=== PATIENT | male | born 1945 | race Caucasian/White ===

== ENCOUNTER 2017-05-18 01:08 | Inpatient (IN) | payer MEDICARE, OTHER ==
[2017-05-18] MEDS ORDERED: NS 0.9% 1000 ML* 1,000 ML IV ONE ×2 (02:23→03:25)
--- OUTSIDE RECORDS SUMMARY | 2017-05-18 02:59 | XMS REPORT ---
:1945 External Reference #:[id number] Author [facility] Address [address] [address] Phone [phone] Care Team Providers Name Role Phone Marlin Mattson MD Primary Care Physician Unavailable Payers Type Date Identification Numbers Payment Provider Subscriber Medicare Primary Policy Number: [id number] Medicare Otto Karimi PayID: [id number] [address] [place] [address] [facility] Part B Policy Number: [id number] For Life Otto Karimi PayID: [id number] [address] [place] [address] Problems Date Description Provider Status Onset: 05/08/2015 Chronic atrial fibrillation Jimmy Lovell M.D., [facility], Active FASNC Onset: 04/26/2015 Parkinson's disease Balwinder Villa MD Active Onset: 04/26/2015 Cerebral hemorrhage Balwinder Villa MD Active Onset: 04/18/2015 Atrial fibrillation Jimmy Lovell M.D., [facility], Active FASNC Family History Date Family Member(s) Problem(s) Comments Father due to [place] () Mother due to Lung Cancer () Social History Type Date Description Comments Marital Status Lives With Occupation Retired Cigarette Use Never Smoked Cigarettes ETOH Use Denies alcohol use Smoking Patient has never smoked Recreational Drug Use Denies Drug Use Daily Caffeine Consumes on average 3 cups of regular coffee per day Daily Caffeine Consumes on average 3 cups of hot tea per day Exercise Type/Frequency Exercises regularly Allergies, Adverse Reactions, Alerts Date Description Reaction Status Severity Comments 06/01/2014 NKDA active Medications Medication Date Status Form Strength Qnty SIG Indications Ordering Provider Pramipexole 00/00/ Active Tablets 0.75mg 1 tab po Unknown Dihydrochloride 0000 daily Tamsulosin HCL 00/00/ Active Capsules 0.4mg 1 by Unknown 0000 mouth every day Bisoprolol 00/00/ Active Tablet 2.5mg 1/2 tab Unknown Fumarate 0000 po daily Xarelto / Active Tablets 20mg 90tabs 1 by Jimmy 0000 mouth Vallecillo every day Hina Lovell, FACSandor, FASNC Azilect / Active Tablets 1mg 1 by Unknown 0000 mouth every day Stalevo 150 / Active Tablets 37.5-150-2 1 tab Unknown 0000 00mg three times a day Ramipril / Active Capsules 2.5mg 1 by Unknown 0000 mouth every day Sinemet // Hx Tablets 25-100mg 2 tabs po Unknown 0000 - tid 2015 Ramipril 00/00/ Hx Capsules 2.5mg 1 by Unknown 0000 - mouth bid 2015 Furosemide /00/ Hx Tablets 20mg 2 by Unknown 0000 - mouth 04/25/ 2015 morning Cotrim 00/ Hx Tabs two tabs Unknown 0000 - daily 2015 Medications Administered in Office Medication Date Status Form Strength Qnty SIG Indications Ordering Provider Technetium TC Administered Injection Jimmy Vallecillo 99M [id number] Tracy Lovell M.D., [facility]ED WITH [facility], Per Unit Dose FASPHILIPP Up To 40 Millicuries Vital Signs Date Vital Result Comment 05/04/2017 Height 74 inches 6'2" Weight 195.00 lb No shoes Heart Rate 58 /min BP Systolic Sitting 102 mmHg Rue reg cuff BP Diastolic Sitting 72 mmHg Rue reg cuff BP Systolic Standing 100 mmHg Rue reg cuff BP Diastolic Standing 72 mmHg Rue reg cuff Respiratory Rate 17 /min BMI (Body Mass Index) 25.0 kg/m2 Ejection Fraction 55-60% 04/20/2015-echo 05/08/2015 Height 74 inches 6'2" Weight 195.00 lb without shoes Heart Rate 68 /min BP Systolic 106 mmHg Ra lrg cuff BP Diastolic 74 mmHg Ra lrg cuff BP Systolic Standing 98 mmHg Ra lrg cuff BP Diastolic Standing 64 mmHg Ra lrg cuff Respiratory Rate 16 /min BMI (Body Mass Index) 25.0 kg/m2 Ejection Fraction 55-60% 04/20/15 04/26/2015 Height 74 inches 6'2" Weight 182.00 lb Heart Rate 64 /min BP Systolic Sitting 102 mmHg BP Diastolic Sitting 70 mmHg Respiratory Rate 14 /min BMI (Body Mass Index) 23.4 kg/m2 04/18/2015 Height 74 inches 6'2" Weight 192.00 lb w/ shoes Heart Rate 70 /min irreg BP Systolic 122 mmHg Lue, reg cuff BP Diastolic 80 mmHg Lue, reg cuff BP Systolic Sitting 114 mmHg Rue, reg cuff BP Diastolic Sitting 70 mmHg Rue, reg cuff BP Systolic Standing 110 mmHg Rue BP Diastolic Standing 66 mmHg Rue Respiratory Rate 18 /min BMI (Body Mass Index) 24.6 kg/m2 06/02/2014 Height 74 inches 6'2" Weight 178.00 lb Heart Rate 60 /min BP Systolic Sitting 102 mmHg BP Diastolic Sitting 60 mmHg Respiratory Rate 12 /min BMI (Body Mass Index) 22.9 kg/m2 Results Description No Information Procedures Date CPT Code Description Status 05/04/2017 59609 EKG Tracing & Interpretation Completed 04/30/2015 57351 Stress Test Completed 04/30/2015 17308 Myocardial Perfusion Imaging Tomographic (Spect) Completed Multiple Studies 04/20/2015 02712 ECHO Transthoracic, Real-Time 2D With Doppler And Color Completed Flow 04/18/2015 05136 EKG Tracing & Interpretation Completed Encounters Type Date Location Provider CPT E/M Dx Office Visit 05/04/2017 [facility] Jimmy Lovell 62503 I48.2 11:15a Guillaume Santamaria, YRN, [facility] [address]337 I48.2 2:00p Guillaume Santamaria, [place], [facility] Office Visit 04/26/2015 [facility] [place] [address] I61.9 10:30a [facility] I48.91 G20 Z86.73 Office Visit 04/18/2015 9:45a [facility] Jimmy Vallecillo [address]31[address] I48.91 Hina Lovell, [facility], [facility] Office Visit 06/02/2014 9:45a [facility] Balwinder Villa, 600[address] 332.0 Plan of Care 05/04/2017 - Jimmy Lovell M.D., [facility], [id number] Chronic atrial fibrillationNew Orders:EchocardiogramComments:As discussed, I feel your heart is doing well.Follow up:one year post TOE.
[2017-05-18 03:04] LABS: EGFR Non-African American 82.6 (>60)
[2017-05-18 03:14] LABS: Hematocrit 51 % (42-52); Hemoglobin 16.4 g/dl (14.0-18.0); Mean Corpuscular HGB Conc 32 g/dl (31-36); Mean Corpuscular Hemoglobin 30 pg (27-31); Mean Corpuscular Volume 94 fL (80-94); Red Blood Count 5.45 10^6/ul (4.0-5.4); Red Cell Distribution Width 14 % (10.5-15); White Blood Count 29.1 10^3/ul (3.5-10.8)
[2017-05-18 03:14] LABS: Urine Appearance Clear; Urine Blood Negative (Negative); Urine Color Amber; Urine Ketones Trace (Negative); Urine Protein Negative (Negative); Urine Specific Gravity 1.016 (1.010-1.030); Urine Urobilinogen Negative (Negative)
[2017-05-18 03:15] LABS: ABS Basophils 0.1 10^3/ul (0-0.2); ABS Eosinophils 0 10^3/ul (0-0.6); ABS Lymphocytes 0.5 10^3/ul (1.0-4.8); ABS Neutrophils 26.6 10^3/ul (1.5-7.7); ABS Nucleated RBC 0.2 10^3/ul; Eosinophil % 0 % (0-6); Lymphocyte % 1.8 % (25-47); Nucleated Red Blood Cells % 0.6; Platelet Count 350 10^3/ul (150-450)
[2017-05-18] MEDS ORDERED: Clindamycin 600 MG IVPREMIX(* 600 MG/50 ML SDV IV ONE (03:29)
[2017-05-18] MEDS ORDERED: Piperacillin/Tazobac ADVAN(*) 3.375 GM in NS 0.9% 100 ML* 100 ML IVPB ONE (04:12)
[2017-05-18] MEDS ORDERED: Ondansetron INJ* 2 MG/ML VIAL IV PRN (05:04)
--- NOTE | 2017-05-18 05:32 | ED ---
Gee Gupta Julia, scribed for Salvador Palencia MD on 05/18/17 at 0342 . 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 He reports that he was unable to get up. His helped him out and is concerned for fever. Patient denies feeling feverish or having any pain. Pt has Parkinsons disease, and states that he is sometimes unable to get up due to the disease. He is unsure of what stage he is at. He denies recent changes in medication. - History Of Current Complaint Chief Complaint: EDWeakness Time Seen by Provider: 05/18/17 02:11 Hx Obtained From: Patient Onset/Duration: Sudden Onset - on chronic disease Location: Negative Associated Signs And Symptoms: Positive: Weakness Related History: Recent Illness - Parkinsons - Allergies/Home Medications Allergies/Adverse Reactions: Allergies Allergy/AdvReac Type Severity Reaction Status Date / Time No Known Allergies Allergy Verified 04/30/15 13:47 PMH/Surg Hx/FS Hx/Imm Hx Endocrine/Hematology History: Denies: Hx Diabetes Cardiovascular History: Reports: Hx Hypertension Denies: Hx Pacemaker/ICD Respiratory History: Denies: Hx Asthma History: Denies: Hx Dialysis, Hx Renal Disease Sensory History: Denies: Hx Hearing Aid Neurological History: Reports: Other Neuro Impairments/Disorders - Parkinson's Psychiatric History: Denies: Hx Panic Disorder - Surgical History Surgery Procedure, Year, and Place: SPLEEN REMOVED Infectious Disease History: No Infectious Disease History: Denies: Traveled Outside the [place] in Last 30 Days - Social History Alcohol Use: None Substance Use Type: Reports: None Smoking Status (MU): Never Smoked Tobacco Review of Systems Negative: Fever - despite temperature reading Negative: Myalgia Positive: Weakness All Other Systems Reviewed And Are Negative: Yes Physical Exam - Summary Physical Exam Summary: Appearance: Well appearing, no pain distress Skin: warm, dry, reflects adequate perfusion Head/face: normal, flat faces Eyes: EOMI, JENELLE ENT: tacky mucous membranes Neck: supple, non-tender Respiratory: CTA, breath sounds present Cardiovascular: Regular rhythm tachycardic, pulses symmetrical Abdomen: non-tender, soft Bowel: present Musculoskeletal: normal strength/ROM intact, 1+ pitting edema on the L leg, R hand is erythematous and warm, Neuro: sensory motor intact, A&Ox3 L hand tremulous Triage Information Reviewed: Yes Vital Signs On Initial Exam: Initial Vitals Temp Pulse Resp BP Pulse Ox 102.3 F 99 18 116/89 94 05/18/17 01:10 05/18/17 01:10 05/18/17 01:10 05/18/17 01:10 05/18/17 01:10 Vital Signs Reviewed: Yes Diagnostics - Vital Signs Vital Signs Temp Pulse Resp BP Pulse Ox 05/18/17 01:34 101.6 F 05/18/17 01:10 102.3 F 99 18 116/89 94 - Laboratory Lab Results: Lab Results 05/18/17 05/18/17 05/18/17 Range/Units 02:35 02:35 02:50 WBC 29.1 H (3.5-10.8) 10^3/ul RBC 5.45 H (4.0-5.4) 10^6/ul Hgb 16.4 (14.0-18.0) g/dl Hct 51 (42-52) % MCV 94 (80-94) fL MCH 30 (27-31) pg MCHC 32 (31-36) g/dl RDW 14 (10.5-15) % Plt Count 350 (150-450) 10^3/ul MPV Not Reportable Neut % (Auto) 91.3 H (38-83) % Lymph % (Auto) 1.8 L (25-47) % [place] % (Auto) 6.7 (1-9) % Eos % (Auto) 0 (0-6) % Baso % (Auto) 0.2 (0-2) % Absolute Neuts (auto) 26.6 H (1.5-7.7) 10^3/ul Absolute Lymphs (auto) 0.5 L (1.0-4.8) 10^3/ul Absolute Monos (auto) 2.0 H (0-0.8) 10^3/ul Absolute Eos (auto) 0 (0-0.6) 10^3/ul Absolute Basos (auto) 0.1 (0-0.2) 10^3/ul Absolute Nucleated RBC 0.2 10^3/ul Nucleated RBC % 0.6 Sodium 133 (133-145) mmol/L Potassium Pending Chloride 103 (101-111) mmol/L Carbon Dioxide 23 (22-32) mmol/L Anion Gap Pending BUN 19 (6-24) mg/dL Creatinine 0.91 (0.67-1.17) mg/dL Est GFR ( Amer) 106.2 (>60) Est GFR (Non-Af Amer) 82.6 (>60) BUN/Creatinine Ratio 20.9 H (8-20) Glucose 114 H (70-100) mg/dL Calcium 9.4 (8.6-10.3) mg/dL Total Bilirubin 0.70 (0.2-1.0) mg/dL AST Pending ALT 11 (7-52) U/L Alkaline Phosphatase 52 (34-104) U/L Total Protein 6.9 (6.4-8.9) g/dL Albumin 3.7 (3.2-5.2) g/dL Globulin 3.2 (2-4) g/dL Albumin/Globulin Ratio 1.2 (1-3) Urine Color Rosario Urine Appearance Clear Urine pH 6.0 (5-9) Ur Specific Issue 1.016 (1.010-1.030) Urine Protein Negative (Negative) Urine Ketones Trace H (Negative) Urine Blood Negative (Negative) Urine Nitrate Negative (Negative) Urine Bilirubin Negative (Negative) Urine Urobilinogen Negative (Negative) Ur Leukocyte Esterase Negative (Negative) Urine Glucose Negative (Negative) Influenza A (Rapid) (Negative) Influenza B (Rapid) (Negative) 05/18/17 Range/Units 03:01 WBC (3.5-10.8) 10^3/ul RBC (4.0-5.4) 10^6/ul Hgb (14.0-18.0) g/dl Hct (42-52) % MCV (80-94) fL MCH (27-31) pg MCHC (31-36) g/dl RDW (10.5-15) % Plt Count (150-450) 10^3/ul MPV Neut % (Auto) (38-83) % Lymph % (Auto) (25-47) % [place] % (Auto) (1-9) % Eos % (Auto) (0-6) % Baso % (Auto) (0-2) % Absolute Neuts (auto) (1.5-7.7) 10^3/ul Absolute Lymphs (auto) (1.0-4.8) 10^3/ul Absolute Monos (auto) (0-0.8) 10^3/ul Absolute Eos (auto) (0-0.6) 10^3/ul Absolute Basos (auto) (0-0.2) 10^3/ul Absolute Nucleated RBC 10^3/ul Nucleated RBC % Sodium (133-145) mmol/L Potassium Chloride (101-111) mmol/L Carbon Dioxide (22-32) mmol/L Anion Gap BUN (6-24) mg/dL Creatinine (0.67-1.17) mg/dL Est GFR ( Amer) (>60) Est GFR (Non-Af Amer) (>60) BUN/Creatinine Ratio (8-20) Glucose (70-100) mg/dL Calcium (8.6-10.3) mg/dL Total Bilirubin (0.2-1.0) mg/dL AST ALT (7-52) U/L Alkaline Phosphatase (34-104) U/L Total Protein (6.4-8.9) g/dL Albumin (3.2-5.2) g/dL Globulin (2-4) g/dL Albumin/Globulin Ratio (1-3) Urine Color Urine Appearance Urine pH (5-9) Ur Specific Issue (1.010-1.030) Urine Protein (Negative) Urine Ketones (Negative) Urine Blood (Negative) Urine Nitrate (Negative) Urine Bilirubin (Negative) Urine Urobilinogen (Negative) Ur Leukocyte Esterase (Negative) Urine Glucose (Negative) Influenza A (Rapid) Negative (Negative) Influenza B (Rapid) Negative (Negative) Result Diagrams: 05/18/17 02:35 05/18/17 02:35 Lab Statement: Any lab studies that have been ordered have been reviewed, and results considered in the medical decision making process. - Radiology R hand XR Radiology Interpretation Completed By: ED Physician - Negative for foriegn body no fracture. CXR Radiology Interpretation Completed By: ED Physician - No acute pulmonary disease. Re-Evaluation - Re-Evaluation First Eval Change: Improved - with iv fluids Complex Multi-Symp Course/Dx Course Of Treatment: pt presented for weakness but found to have bright red R hand and fever. No pain in hand. No other def septic source seen. Epi toes mildly red. Started empiric clinda, added zosyn later. Lactate not elevated. Admit for futher eval of sepsis syndrome. - Diagnoses Differential Diagnoses/HQI/PQRI: Metabolic Abnormality, Sepsis, Urinary Tract Infection Provider Diagnoses: Sepsis syndrome, Generalized weakness, Parkinsonian syndrome - Physician Notifications Discussed Care Of Patient With: Kalyn Chilel Time Discussed With Above Provider: 04:11 Instructed by Provider To: Admit As Inpatient Discharge - Discharge Plan Condition: Fair Disposition: ADMITTED TO [facility] The documentation as recorded by the Gee chapa Julia accurately reflects the service I personally performed and the decisions made by , Salvador Palencia MD.
[2017-05-18] MEDS: NS 0.9% 1000 ML* 1,000 ML IV SCH ×2 (06:03→16:26)
--- NOTE | 2017-05-18 07:49 | RAD ---
INDICATION: Shortness of breath. COMPARISON: Similar chest x-ray dated March 31, 2015 TECHNIQUE: PA and lateral views of the chest were obtained. FINDINGS: The heart and mediastinum are normal in size and contour. Again seen is a stigmata of chronic obstructive pulmonary disease. Otherwise the lungs are grossly clear. There is no evidence of large pleural effusion. Visualized bones are normal for the patient's age. There is no radiographic evidence of free air beneath the diaphragm IMPRESSION: AGAIN SEEN IS THE STIGMATA OF CHRONIC OBSTRUCTIVE PULMONARY DISEASE WITHOUT RADIOGRAPHICALLY APPARENT ACUTE CARDIOTHORACIC ABNORMALITY.
--- NOTE | 2017-05-18 07:49 | RAD ---
INDICATION: Right hand erythema COMPARISON: None. TECHNIQUE: 3 views of the right hand were obtained. FINDINGS: The adequately corticated bones are in normal alignment. No significant focal osseous abnormality or fracture is seen. Joint spaces appear maintained. IMPRESSION: Normal right hand radiograph. If the patient's symptoms persist, follow-up imaging is recommended.
[2017-05-18] MEDS: ENTACAPONE PO SCH ×3 (09:37→20:15)
[2017-05-18] MEDS: LEVODOPA PO SCH ×3 (09:37→20:15)
[2017-05-18] MEDS: Bisoprolol TAB* 5 MG PO SCH (09:37)
[2017-05-18] MEDS: CARBIDOPA PO SCH ×3 (09:37→20:15)
[2017-05-18] MEDS: RASAGILINE 1 MG PO SCH (09:38)
[2017-05-18] MEDS: Pramipexole TAB* 0.5 MG PO SCH (09:38)
[2017-05-18] MEDS: Tamsulosin CAP* 0.4 MG PO SCH (09:38)
[2017-05-18] MEDS: Ramipril CAP* 2.5 MG PO SCH (09:38)
--- NOTE | 2017-05-18 10:18 | PN ---
Hospitalist Progress Note Date of Service: 05/18/17 Seen and examined by me this morning, I am assuming his care today. No complaints, just worked with PT and felt well. No dysuria, cough/sputum, sore throat, diarrhea. On exam, he is afebrile, well appearing. Some erythema on left 2nd and 3rd digits with a chronic appearing ulcer on tip of 3rd digit, also with an ulcer on right 2nd digit 71 yo M with history of Parkinson's presents after a fall and is found to have SIRS criteria with a suspected source of his toes. Fall likely from infection exacerbating his parkinson's symptoms. PT evaluating. Sepsis in setting of asplenia, I agree most likely source is toe ulcers. Continue clindamycin and check blood cultures. Consider MRI to rule out osteomyelits, pending ID consult Wound care consult
[2017-05-18] MEDS: Clindamycin 600 MG IVPREMIX(* 600 MG/50 ML SDV IV SCH ×2 (12:02→20:15)
--- NOTE | 2017-05-18 14:51 | HP ---
CC: Dr. Marlin Mattson; Dr. Villa; Dr. Lovell * HISTORY AND PHYSICAL: DATE OF ADMISSION: 05/18/17 PRIMARY CARE PROVIDER: Dr. Marlin Mattson. NEUROLOGIST: Dr. Villa. SHELL SIEVE OPERATOR: Dr. Lovell. CHIEF COMPLAINT: Fall and weakness. HISTORY OF PRESENT ILLNESS: Mr. Karimi is a 71-year-old male who has a history of Parkinson's disease, chronic atrial fibrillation, history of cerebral hemorrhage and BPH, who presents to the emergency room with complaints of weakness. The patient states that he was taking a shower on the evening prior to admission that he was climbing out the tub, he began to fall very slowly to the floor. After he landed on the floor, he could not get up. He believes that he was on the floor for approximately 2 hours. The patient states overall he has been feeling quite well over the last couple of days. He and his took a three-quarters of a mile walk the day prior to the admission. He has noted that he has had some pain in his feet bilaterally; however, it did not preclude him from taking a walk yesterday. PAST MEDICAL HISTORY: 1. Parkinson's disease. 2. Chronic atrial fibrillation. 3. Hemorrhagic CVA in 2002. 4. BPH. PAST SURGICAL HISTORY: 1. Splenectomy. 2. Left leg surgery. 3. Hernia repair. MEDICATIONS: 1. Ramipril 2.5 mg p.o. daily. 2. Carbidopa/levodopa/entacapone 150 mg 1 tab p.o. t.i.d. 3. Flomax 0.4 mg p.o. daily. 4. Xarelto 20 mg p.o. daily. 5. Azilect 1 mg p.o. daily. 6. Bisoprolol 1.25 mg p.o. daily. 7. Mirapex 0.75 mg p.o. daily. ALLERGIES: No known drug allergies. FAMILY HISTORY: Mom at the age of 80 of cancer. Dad also at the age of 80 of heart failure. SOCIAL HISTORY: The patient is a nonsmoker. He does not drink alcohol. 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 He is . He has 3 children. He indicates that his , Ana Roberts is his healthcare proxy. REVIEW OF SYSTEMS: A complete 11-system review of systems is obtained. Pertinent positives and negatives are as per HPI and otherwise negative. PHYSICAL EXAMINATION GENERAL: The patient is a well-developed, middle-aged male, lying in a stretcher, in no acute distress. VITAL SIGNS: Blood pressure 100/85, pulse 98, respirations 18, temp 101.6 currently, T-max 102.3, O2 sat 94% on room air. HEENT: Pupils are equal and round. Extraocular muscles are intact. Oropharynx is clear. Oral mucosa is moist. There is no submandibular, cervical , or supraclavicular adenopathy. Thyroid is not enlarged. No thyroid nodules are noted. PULMONARY: Lungs clear to auscultation bilaterally. CARDIAC: Normal S1, S2. Heart rate is irregularly irregular with a mildly tachycardic rate. There is 1 to 2+ bilateral ankle edema. ABDOMEN: Bowel sounds are present. Abdomen is soft, nontender, nondistended. MUSCULOSKELETAL: There is no cyanosis or clubbing of the digits. There is full active range of motion of all 4 extremities. SKIN: Warm and dry. There are no rashes. The patient's right hand appears mildly erythematous (by report from the ER provider, the hand was bright red). There is marked erythema and slight warmth to the dorsum of the right foot and most notably the right second toe. There is also erythema of the left second toe. NEUROLOGIC: The patient is mildly dysarthric. There is a mild right facial droop most noted at the corner of the mouth. PSYCH: The patient is alert. He is oriented x3. Affect appears appropriate. DIAGNOSTIC STUDIES/LAB DATA: WBC 29.1, hemoglobin 16.4, hematocrit 51, platelets 350. Sodium 133, potassium 3.9, chloride 103, CO2 23, BUN 19, creatinine 0.91, glucose 114, lactic acid 1.2, calcium 9.4. Bilirubin 0.7, AST 18, ALT 11, alk phos 52, albumin 3.7. Urinalysis reveals trace ketones and is otherwise negative. Influenza A and B is negative. Chest x-ray to mn reveals possibly hyperinflated lungs, there appeared to be patchy infiltrates; however, this looks relatively unchanged from chest x-ray obtained in 2016. Formal Radiology read is pending. Right hand x-ray read is pending. ASSESSMENT AND PLAN: Mr. Karimi is a 71-year-old male with a history of Parkinson's disease; chronic atrial fibrillation, on Xarelto and past history of hemorrhagic cerebrovascular accident, who presents to the emergency room with complaints of fall and weakness. 1. Weakness. I suspect the weakness is secondary to infection. The patient will be admitted and monitored for his ability to ambulate. PT eval will be requested. 2. Probable right foot cellulitis. The patient has marked erythema on the dorsum of the right foot including the right second toe. The left second toe was also erythematous. There does appear to be some swelling of these toes. The patient has small ulcerations on the tips of second toes bilaterally, the left being worse than the right. There is also significant callus noted at the tip of the left second toe. I do question whether or not he could have underlying osteomyelitis. For now, the patient will be admitted and maintained on clindamycin 600 mg IV q.8 hours. Infectious Disease consultation will be requested. I am adding a CRP to the labs obtained in the emergency room. I am going to hold off on imaging for now, but a discussion will need to be held with Dr. Barnett whether or not MRI would be warranted to evaluate for underlying osteomyelitis. 3. Parkinson's disease. The patient will be maintained on his usual doses of carbidopa/levodopa/entacapone as well as his Mirapex. 4. Chronic atrial fibrillation. The patient is in controlled atrial fibrillation at this point. He will continue on bisoprolol and Xarelto. 5. Benign prostatic hypertrophy. Continue Flomax. 6. DVT prophylaxis. According to the Adult Thrombosis Prophylaxis Risk Factor Assessment Guide, the patient has a total risk factor score of 2, making him moderate risk. He will be maintained on Xarelto, which will act as a DVT prophylaxis. 7. Code status is full and again the patient indicates that his is his healthcare proxy. TIME SPENT: Sixty-five minutes was spent admitting this patient. [id number]/[facility] #: [id number] [place]
[2017-05-18] MEDS ORDERED: Rivaroxaban TAB(*) 20 MG TAB PO SCH (17:00)
--- NOTE | 2017-05-18 20:38 | CONS ---
CONSULTATION REPORT: DATE OF CONSULT: 05/18/17 REQUESTING PROVIDER: Dr. Holman. CONSULTING SERVICE: Infectious Disease. REASON FOR CONSULTATION: Left 2nd toe infection. IMPRESSION: 1. Fever and leukocytosis in the setting of splenectomy. 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 2. Parkinson's disease. RECOMMENDATIONS: I have discussed with the patient and his . I would recommend 6 to 8 weeks of IV antibiotics and orthopedic evaluation here for consideration of amputation of the distal 2nd toe. The patient and his are moving out of [place] to [place] in 2 weeks and declined any treatment that would delay that happening. They understand that lack of surgical treatment could lead to progression and recurrence of infection, which could be life threatening. Short of that, if the blood cultures are negative we will plan on a week of IV antibiotics, could use daptomycin 500 mg IV daily and then switch to clindamycin 300 mg 3 times a day for a month, which should give him time to find and establish care with a provider in [place]. HISTORY OF PRESENT ILLNESS: This is a 71-year-old man with Parkinson's disease , brought to the hospital on 05/18/17 after a fall in the shower with weakness. He had had no chills, fever or sweat preceding it and no particular complaints. In the hospital, he was found to have left 2nd toe infection, was started on clindamycin and a dose of Zosyn. He had influenza PCR that was negative. Blood cultures were sent, they are pending. He had a fever this morning of 39.1, a CRP of 10, urinalysis negative. He has noted some redness in the 2nd toe on the left, but has not particularly examined it very closely. They were unaware of the ulceration, though they came to the hospital. PAST MEDICAL HISTORY: 1. Parkinson's disease. 2. Hypertension. 3. Status post splenectomy. MEDICATIONS: 1. Bisoprolol. 2. Clindamycin 600 mg every 8 hours. 3. Zofran. 4. Mirapex. 5. Ramipril. 6. Azilect. 7. Rivaroxaban. 8. Tamsulosin. ALLERGIES: No known drug allergies. FAMILY HISTORY: No recurrent infections. SOCIAL HISTORY: He lives with his in [place]. They frequently travel to [place]. No sick contacts. REVIEW OF SYSTEMS: A 14-point review of systems was negative except as noted above. PHYSICAL EXAM: Vital Signs: Temperature is 37, heart rate 80, respiratory rate 20, blood pressure 115/80, oxygen saturation 99% on room air. In general, he is awake, not in distress. Neurologic: He is oriented x3, follows all commands. HEENT: There is no conjunctival hemorrhage. Oropharynx: Without lesions. Neck: Supple. Lymph Nodes: There is no inguinal, axillary, or epitrochlear lymphadenopathy. Heart: Regular rate and rhythm without murmurs, rubs or gallops. Lungs: Clear to auscultation bilaterally. Abdomen: Soft, nontender, nondistended. There are bowel sounds present. Skin: There is no rash or splinter hemorrhage. Musculoskeletal: There is no spine tenderness to palpation. The left 2nd toe has diffuse edema, mild erythema, has a foul odor. There is a distal ulcer with callus. There is no drainage. DIAGNOSTIC STUDIES/LAB DATA: White blood cell count 29, hemoglobin 16, platelets 350. Creatinine 0.9. CRP 10. Please see impression and recommendations as outlined above. Thank you for asking me to see Mr. Karimi in consultation. [id number] #: [id number] MTDD
[2017-05-19] MEDS: Clindamycin 600 MG IVPREMIX(* 600 MG/50 ML SDV IV SCH (03:56)
[2017-05-19] MEDS: NS 0.9% 1000 ML* 1,000 ML IV SCH (03:56)
[2017-05-19 07:44] LABS: Hematocrit 48 % (42-52); Mean Corpuscular HGB Conc 33 g/dl (31-36); Mean Corpuscular Hemoglobin 30 pg (27-31); Mean Corpuscular Volume 91 fL (80-94); Mean Platelet Volume 9 um3 (7.4-10.4); Platelet Count 222 10^3/ul (150-450); Red Blood Count 5.29 10^6/ul (4.0-5.4); Red Cell Distribution Width 13 % (10.5-15); White Blood Count 14.1 10^3/ul (3.5-10.8)
[2017-05-19 07:55] LABS: EGFR Non-African American 85.9 (>60)
[2017-05-19] MEDS: LEVODOPA PO SCH ×2 (09:30→14:02)
[2017-05-19] MEDS: RASAGILINE 1 MG PO SCH (09:30)
[2017-05-19] MEDS: CARBIDOPA PO SCH ×2 (09:30→14:02)
[2017-05-19] MEDS: ENTACAPONE PO SCH ×2 (09:30→14:02)
[2017-05-19] MEDS: Pramipexole TAB* 0.5 MG PO SCH (09:30)
[2017-05-19] MEDS: Tamsulosin CAP* 0.4 MG PO SCH (09:31)
[2017-05-19] MEDS: Ramipril CAP* 2.5 MG PO SCH (09:31)
[2017-05-19] MEDS: Bisoprolol TAB* 5 MG PO SCH (09:31)
[2017-05-19] MEDS ORDERED: DAPTOmycin SDV(*) 500 MG in NS 0.9% 50 ML* 50 ML IVPB SCH (11:30)
--- NOTE | 2017-05-19 14:19 | RAD ---
INDICATION: Open wounds on the bilateral toes COMPARISON: Similar examination dated July 03, 2015 TECHNIQUE: Ankle-brachial indices and Doppler tracings were obtained of the lower extremities bilaterally. Volume pulse recordings were acquired at the bilateral ankles. REPORT: Ankle-brachial indices: Right: Value (SBP) Index Brachial: 122 Posterior tibialis: 157 1.19 Dorsalis pedis: 145 1.10 Left: Value (SBP) Index Brachial: 132 Posterior tibialis: 161 1.22 Dorsalis pedis: 156 1.18 Doppler waveforms (acquired at rest): In the interrogated lower extremity arteries, Doppler waveforms are triphasic in all distributions. Volume pulse recordings (acquired at rest): Volume pulse recordings, measured at the bilateral ankles, are symmetric. IMPRESSION: No evidence of claudication or significant arterial insufficieny by vascular ultrasound SRIRAM standards. Please note, advanced calcified atherosclerosis of the peripheral arteries can cause falsely elevated SRIRAM values. If there is strong clinical concern for lower extremity arterial insufficiency further vascular imaging may be indicated.
--- NOTE | 2017-05-19 15:54 | PN ---
Progress Note - Progress Note Date of Service: 05/19/17 SOAP: Subjective: CC: osteomyelitis HPI: 71 year old man with cellulitis and ulcer of left foot; no fever, rash, or diarrhea. Feels well. Appetite is good. Objective: Vital Signs Temp 37.2 C 05/19/17 07:50 Pulse 78 05/19/17 07:50 Resp 15 05/19/17 07:50 BP 114/60 05/19/17 07:50 Pulse Ox 93 05/19/17 07:50 Intake & Output 05/18/17 05/19/17 05/19/17 18:59 06:59 18:59 Intake Total 2228 2356 2006 Output Total 400 Balance 8 1956 2006 Intake: IV Fluids 808 2198 755 NS (0.9%) 808 2198 755 IVPB 158 72 ABX - CLINDAMYCIN 158 Daptomycin 72 Oral 1420 0 1180 Output: Urine 400 Other: Estimated Void Medium # Bowel Movements 0 # Voids 2 2 Gen:awake, no distress HEENT:no thrush Heart:RRR no murmur Lungs:CTA BL Abd:+BS NTND soft Skin: no rash MSK: L foot trace erythema; 2nd toe distal ulceration Microbiology 05/18/17 03:27 Blood Venous Aerobic Blood Culture - Preliminary No Growth Day 1 05/18/17 03:27 Blood Venous Anaerobic Blood Culture - Preliminary No Growth Day 1 05/18/17 03:27 Blood Venous Aerobic Blood Culture - Preliminary No Growth Day 1 05/18/17 03:27 Blood Venous Anaerobic Blood Culture - Preliminary No Growth Day 1 05/18/17 02:45 Nasopharyngeal Influenza Types A,B Antigen (DEUCE) - Final Specimen received for Influenza A/B Molecular testing Assessment: 1. left 2nd toe non pressure chronic ulcer with chronic osteomyelitis 2. s/p splenectomy Plan: 1. daptomycin 500 mg daily for 7 days with weekly cbc, cmp, crp, ck; fu with me next week, then will plan long course clindamycin and fu with [facility] in [place] as he and are committed to moving and having no further healthcare interventions performed here, even if there is a risk of by not doing so, which I told them there is. 35 minutes floor time >50% face to face discussing follow up plans
[2017-05-19 16:08] VITALS: BP 124/89
--- NOTE | 2017-05-21 12:33 | DS ---
CC: Dr. Marlin Mattson; Dr. Laura Holman; Dr. Curtis Barnett. DISCHARGE SUMMARY: DATE OF ADMISSION: 05/18/17 DATE OF DISCHARGE: 05/19/17 PRIMARY CARE PROVIDER: Dr. Marlin Mattson. MY ATTENDING WHILE IN THE HOSPITAL: Dr. Luara Holman. CONSULTING PROVIDERS: Dr. Curtis Barnett of Infectious Disease. PRIMARY DISCHARGE DIAGNOSES: 1. Bilateral second toe, nonpressure related ulcers with probable underlying osteomyelitis. 2. Cellulitis. SECONDARY DISCHARGE DIAGNOSES: 1. Parkinson's disease. 2. Chronic atrial fibrillation. 3. Benign prostatic hyperplasia. 4. History of cerebrovascular accident in 2002. 5. Splenectomy. 6. Left leg surgery. 7. Hernia repair. STUDIES DONE WHILE IN THE HOSPITAL: Chest x-ray from 05/18/17 shows again seen is somewhat acute chr onic obstructive pulmonary disease without radiographically apparent cardiothoracic abnormalit y. Hand x-ray from 05/18/17 read as normal hand radiograph. If the patient's symptoms persist, foll owup imaging is recommended. SRIRAM from 05/19/17 read as no evidence of claudication, significant arterial insufficiency by vascular ultrasound SRIRAM standards. Please note advanced calcified atherosclerosis of the peripheral arteries can cause falsely elevated SRIRAM values. There is a strong clinical concern for lower extremity arteri al insufficiency. Peripheral vascular imaging may be indicated. MEDICATIONS AT DISCHARGE: 1. Ramipril 2.5 mg p.o. daily. 2. Carbidopa/levodopa/entacapone 1 tab p.o. t.i.d. 3. Tamsulosin 0.4 mg p.o. daily. 4. Rivaroxaban 20 mg p.o. daily. 5. Rasagiline 1 mg p.o. daily. 6. Zebeta 1.25 mg p.o. daily. 7. Pramipexole 0.75 mg p.o. daily. 8. Clindamycin 300 mg p.o. q. 8 hours starting 1 week. 9. Daptomycin 500 mg IV q. 24 hours x6. New medications at discharge: 1. Clindamycin. 2. Daptomycin. Medications discontinued at discharge: None. HOSPITAL COURSE: This is a brief summary of the patient's presentation. For more details, please se e the history and physical from Dr. Kalyn Chilel on 05/18/17. In brief, the patient is a 71-year-ol d male with past medical history significant for the above, who presents to the emergency room with c omplaints of weakness and a fall on the day of discharge. It was a very slow fall without head traum a or loss of consciousness nor any prodromal symptoms. He had been feeling quite well, he was able t o walk three-quarters of a mile the day prior to admission with some pain in his feet bilaterally. T he patient then developed weakness without any other associated symptoms. The patient was found to h ave ulcers on his bilateral second toes with erythema spreading up the dorsum of his right foot. Thi s is concerning for osteomyelitis. The patient was admitted to the hospital, started on IV clindamyc in and was seen in consultation by Dr. Curtis Barnett of Infectious Disease. The patient improved overnight. The patient was moving to [place] in 2 weeks at the time of admission and declined any treatment that would delay this happening, as such it was discussed with Dr. Barnett that he should have a week of IV antibiotics at the outpatient infusion clinic starting with daptomycin 500 mg daily as above. It was discussed with the patient that incomplete treatment of this possibly serious infe ction could lead to recurrent sepsis and . The patient states that he understood and wanted to proceed with moving to [place] anyways. The patient received his first dose of daptomycin in the hospital. The patient had a temperature of 102.3 and 101.6 while in the emergency room. The patient 's highest temperature after that was 99.6 on the morning of 05/18/17 and was within normal limits af ter that. The patient also had low blood pressure, lowest being 96/76 at that time, which then also returned to within normal limits. The patient had no other abnormalities or complaints. The patient has underlying rather advanced Parkinson's disease with tremor and shuffling gait. The patient denie s orthostatic hypotension and is able to walk significant distances and does not frequently fall. Th e patient follows with Dr. Villa outpatient for management of his Parkinson's disease. The patient was amenable to the plan of, as described above, for antibiotics and states that he would as soon as possible establish with a new primary care provider in [place] as well as orthopedic surgeon and neurologist. The patient also stated that he would see Dr. Marlin Mattson one more time before leaving for [place]. PHYSICAL EXAMINATION ON THE DAY OF DISCHARGE: General: The patient is a 71-year- old male who appea rs stated age and sitting comfortably in bed in no acute distress with an obvious resting tremor in h is left hand worse than his right. Vital Signs: At the time of discharge, temperature 97.4, pulse rat e 84, respiratory rate 20, oxygen saturation 94% on room air, blood pressure 124/80. HEENT: Head, n ormocephalic, atraumatic. Sclerae anicteric. No conjunctival injection. Nasal mucosa moist. Oral mucosa moist. No pharyngeal erythema, discharge or exudates. Neck: Supple, nontender. No lymphaden opathy. No carotid bruits auscultated. Cardiac: Regular rate and rhythm. No clicks, murmurs, harris ps, or rubs. Pulses 2+ in bilateral dorsalis pedis, posterior tibialis, and radial areas. The patie nt has mottling of the skin in the bilateral lower extremities with 1+ pitting edema of bilateral low er extremities which resolved after the patient had his feet elevated for approximately 4 hours. Res piratory: Clear to auscultation bilaterally. No wheezes, rales, or rhonchi. Good air exchange bila terally. Abdomen: Soft, nontender, nondistended. Bowel sounds are present in all 4 quadrants. No h epatosplenomegaly. No abdominal bruits auscultated. Skin: The patient has ulcers covering the enti rety of his bilateral first toes. The patient has mottling of the skin in his feet as above. The pa tient has no other rashes or bruising or ulcers. Neuro: Cranial nerves II through XII intact. The patient has mask like facies. The patient has a shuffling gait and a tremor of approximately 5 Hz in his left hand, which is improved with intention. Aside from tremor, cerebellar testings are perform ed without abnormality. No other focal deficits. Psychiatric: The patient is very pleasant and coop erative. LABORATORY DATA ON THE DAY OF DISCHARGE: White blood cell count 14.1, hemoglobin 16.0, platelet coun t 222, sodium 133, potassium 4.0, chloride 106, carbon dioxide 21, anion gap 6, BUN 16, creatinine 0. 88, glucose 88, calcium 8.8, triglycerides 62, cholesterol 139. LDL cholesterol 81, HDL cholesterol 45.4, lactic acid 1.2. Other laboratory data, of note from patient's admission, white blood cell cou nt 29.1, glucose 114, CRP 10.27. Urine benign. Influenza A and B negative. DISCHARGE PLAN: The patient will be discharged to home to follow up with the Infusion [facility] for 6 a dditional days of daptomycin, then transition to oral clindamycin 300 mg p.o. every 8 hours. The pat ient should follow up with his primary care provider, Dr. Marlin Mattson within 1 week of discharge [facility]. The patient should then move to [place] as scheduled and establish as soon as pos sible with a primary care provider in [place]. Discussed with the patient that trying to establis h with primary should occur before he moves down there. The patient at that time should also look fo r an orthopedic surgeon and a neurologist to follow with down in [place]. Patient had concerns ab out his Parkinson's care. The patient informed that he is somewhat maximal Parkinson's medications a nd that he should discuss with his neurologist possibly increasing his medications or the patient als o had had discussions previously about deep brain stimulator implantation. The patient should engage in activity as tolerated, avoid pressure on his toes, and eat a heart healthy diet without caffeine. TIME SPENT: Approximately 60 minutes were spent on this discharge, 30 of which was spent face-to-fac e with the patient obtaining history and physical and discussing treatment plan. JEFF BE [id number] #: [id number]
== END 2017-05-19 17:00 | disposition home or self-care (01) | DRG 541 ==
LOC: ED 01:08 → MED 05:04
PROVIDERS: ADMIT Hospitalist; ATTEND Internal Medicine
DX: M86.671 Other chronic osteomyelitis, right ankle and foot (principal); G20 Parkinson's disease; I48.2 Chronic atrial fibrillation; L97.519 Non-pressure chronic ulcer of other part of right foot with unspecified severity; M86.672 Other chronic osteomyelitis, left ankle and foot; L97.529 Non-pressure chronic ulcer of other part of left foot with unspecified severity; L03.031 Cellulitis of right toe; L03.032 Cellulitis of left toe; N40.0 Benign prostatic hyperplasia without lower urinary tract symptoms; W17.89XA Other fall from one level to another, initial encounter; Y92.002 Bathroom of unspecified non-institutional (private) residence as the place of occurrence of the external cause; Z86.73 Personal history of transient ischemic attack (TIA), and cerebral infarction without residual deficits; Z79.01 Long term (current) use of anticoagulants; Z79.899 Other long term (current) drug therapy; Z80.9 Family history of malignant neoplasm, unspecified; Z82.49 Family history of ischemic heart disease and other diseases of the circulatory system
CPT/HCPCS: 36415; 71046; 80048; 80053; 80061; 81003; 83605; 85025; 85027; 86140; 87040; 87502; 93922; 99285; A9270-GY; J0878; J2543